=== PATIENT | female | born 1950 ===

== ENCOUNTER 2017-09-18 00:48 | Inpatient (IN) | payer MEDICARE, OTHER ==
[2017-09-17 13:46] LABS: INR 0.95
[2017-09-18] VITALS (8 sets, daily range): BP systolic 118–179; BP diastolic 68–115
[~2017-09-18] VITALS: Ht 160 cm; Wt 74.8 kg
[~2017-09-18 00:48] MED LIST: ASPI81TA94 PO; CARB-134 PO; DONE10TA89 PO; ESTR1PAT3 PO; HYDR-2966 PO; LEVO88TA PO; LISI20TA29 PO; PRAV20TA65 PO
[2017-09-18] MEDS ORDERED: SUGAMMADEX SOD 200 MG/2 ML SDV ONE (10:18)
[2017-09-18] MEDS ORDERED: ROCURONIUM BROM 10 MG/ML 10 ML ONE (10:18)
[2017-09-18] MEDS ORDERED: ONDANSETRON 4 MG/2 ML VIAL ONE (10:18)
[2017-09-18] MEDS ORDERED: PROPOFOL EMUL(*) 10MG/ML 20 ML 20 ML ONE (10:18)
[2017-09-18] MEDS ORDERED: fentaNYL CITR 250 MCG/5 ML AMP ONE (10:18)
[2017-09-18] MEDS ORDERED: DEXAMETHASONE SOD 4 MG/ML VIAL ONE (10:18)
[2017-09-18] MEDS ORDERED: LIDOCAINE MPF 1% 5 ML VIAL ONE (10:18)
[2017-09-18] MEDS ORDERED: KETAMINE HCL 200 MG/20 ML MDV ONE (10:22)
[2017-09-18] MEDS ORDERED: LIDOCAINE/SOD BICARB 8.4% SYR ID ONE (11:00)
[2017-09-18] MEDS ORDERED: CELECOXIB 200 MG CAP PO ONE (11:00)
[2017-09-18] MEDS ORDERED: cloNIDine EPIDUR INJ 100MCG/ML 40 MCG, ROPIVACAINE 0.5% 20 ML VIAL 25 ML, EPINEPHrine H... INJ ONE (11:00)
[2017-09-18] MEDS ORDERED: ceFAZolin(*) 2GM/D5W 50ML 50 ML IVPB ONE (11:00)
[2017-09-18] MEDS ORDERED: PREGABALIN 150 MG CAPSULE PO ONE (11:00)
[2017-09-18] MEDS ORDERED: NORMOSOL R SOLN(*) 1000 ML BAG 1,000 ML IV PRN (11:00)
[2017-09-18] MEDS ORDERED: TRANEXAMIC AC 1000 MG/10ML SDV 1,000 MG in DEXTROSE 5% 50 ML BAG 50 ML IV ONE (11:00)
[2017-09-18] MEDS ORDERED: FAMOTIDINE 20 MG TAB PO ONE (11:00)
[2017-09-18] MEDS ORDERED: ACETAMINOPHEN 500 MG TAB PO ONE (11:00)
[2017-09-18] MEDS ORDERED: BACITRACIN 50000 UNIT/VIAL 100,000 UNIT in NS 0.9% 3000 ML IRRIGATION BAG 3,000 ML IR ONE (11:00)
[2017-09-18] MEDS ORDERED: ROPIVACAINE 0.2% 20 ML VIAL ONE (11:57)
[2017-09-18] MEDS ORDERED: LIDO/EPI 2% MPF 1:200,000 20ML ONE (12:32)
[2017-09-18] MEDS: MIDAZOLAM 2 MG/2 ML VIAL IVP PRN ×2 (13:00→13:02)
[2017-09-18] MEDS ORDERED: NS 0.9% IRRIGATION 1000ML PLCT IR ONE (13:43)
[2017-09-18] MEDS ORDERED: ZOLPIDEM TARTRATE 5 MG TAB PO PRN (15:20)
[2017-09-18] MEDS ORDERED: diphenhydrAMINE 50 MG/ML VIAL IVP PRN (15:20)
[2017-09-18] MEDS ORDERED: MAGNESIUM HYDROXIDE* 30ML UDCP PO PRN (15:20)
[2017-09-18] MEDS ORDERED: MAGNESIUM CITRATE 300 ML BTL PO PRN (15:20)
[2017-09-18] MEDS ORDERED: diphenhydrAMINE 25 MG CAP PO PRN (15:20)
[2017-09-18] MEDS ORDERED: FLUSH 10 ML SYR IVP PRN (15:20)
[2017-09-18] MEDS ORDERED: BISACODYL 10 MG SUPP PR PRN (15:20)
[2017-09-18] MEDS ORDERED: HYDROmorphone HCL 2 MG/ML SDV IVP PRN (15:20)
[2017-09-18] MEDS ORDERED: LR 1000 ML BAG 1000 ML IV PRN (15:20)
[2017-09-18] MEDS ORDERED: ONDANSETRON 4 MG/2 ML VIAL IVP PRN (15:20)
[2017-09-18] MEDS ORDERED: PROMETHAZINE 25 MG/ML 1 ML AMP IVP PRN (15:20)
[2017-09-18] MEDS ORDERED: PRAV80TA29 PO (16:51)
[2017-09-18] MEDS ORDERED: COPP2CAP2 PO (17:00)
[2017-09-18] MEDS ORDERED: MELA5TAB6 PO (17:00)
[2017-09-18] MEDS ORDERED: MAGN100T PO (17:00)
[2017-09-18] MEDS ORDERED: ESTR0.5T16 PO (17:00)
--- NOTE | 2017-09-18 17:21 | Hospitalist Consultation ---
History of Present Illness Requesting Physician Dr. Bella Reason for Consult Medication Management Chief Complaint s/p right reverse total shoulder replacement History of Present Illness She was admitted s/p right reverse total shoulder replacement. It was reported the surgery went well and without complication. History Problems: (1) Brain cancer Status: Chronic (2) CVA (cerebral vascular accident) Status: Chronic (3) Seizure Status: Chronic (4) Hypothyroidism Status: Chronic (5) Hypertension Status: Chronic (6) Hyperlipidemia Status: Chronic Home Meds Reported Medications Melatonin (MELATONIN) 5 Mg Tablet, 5 MG PO HS 09/18/17 Magnesium Amino Acid Chelate (MAGNESIUM) 100 Mg Tablet, PO DAILY 09/18/17 Copper Gluconate (COPPER) 2 Mg Capsule, 2 MG PO DAILY, CAPSULE 09/18/17 Estradiol (ESTRADIOL) 0.5 Mg Tablet, 0.5 MG PO DAILY 09/18/17 Pravastatin Sodium (PRAVASTATIN SODIUM) 80 Mg Tablet, 80 MG PO HS 09/18/17 Lisinopril (LISINOPRIL) 20 Mg Tablet, 20 MG PO QDAY, TAB 09/13/17 Hydrochlorothiazide (HYDROCHLOROTHIAZIDE) 25 Mg Tablet, 1 TAB PO QDAY, TAB 09/13/17 Carbamazepine (CARBAMAZEPINE ER) 200 Mg Tab.er.12h, 200 MG PO DAILY 09/13/17 Levothyroxine Sodium (Levo-T) 88 Mcg Tablet, 88 MCG PO DAILY 09/13/17 Donepezil Hcl (ARICEPT) 10 Mg Tablet, 10 MG PO QDAY, TAB 09/13/17 Aspirin (ASPIRIN) 81 Mg Tab.chew, 81 MG PO QDAY, TAB.CHEW 09/13/17 Discontinued Reported Medications Estradiol (ESTRADIOL 0.05 MG) 1 Each Patch.tdwk, 1 EACH PO DAILY, PATCH.WK 09/13/17 Pravastatin Sodium (PRAVACHOL) 20 Mg Tablet, 80 MG PO QDAY, TAB 09/13/17 Allergies: Coded Allergies: No Known Drug Allergies (Unverified , 09/11/17) Patient History: FH: AR (myocardial infarction) FATHER, MOTHER, Hx Smoking: No Smoking Status: Never Smoker Caffeine Intake: Tea Caffeine/Cups Per Day: RARE Hx Alcohol Use: No Hx Substance Use Disorder: No Social Drug Use: Never History of IV Drug Use: No Review of Systems All Systems Reviewed/Normal: Yes, Except as Noted Exam Vital Signs Vital Signs Date Time Temp Pulse Resp B/P (MAP) Pulse Ox O2 Delivery O2 Flow Rate FiO2 09/18/17 17:00 93 140/98 (112) 97 Nasal Cannula 09/18/17 16:53 3.0 09/18/17 16:33 97.9 16 General Appearance: No Acute Distress, Afebrile Respiratory: No Respiratory Distress, Clear to Auscultation Psych: Other (patient sleeping during exam) Assessment and Plan Problems: (1) Status post reverse total replacement of right shoulder Status: Acute Assessment & Plan: Followed by Dr. Bella. (2) Hypertension Status: Chronic Assessment & Plan: She is on chronic treatment with Lisinopril and Hydrochlorothiazide. Lisinopril has been restarted with hold parameters. (3) Hypothyroidism Status: Chronic Assessment & Plan: She is on chronic treatment with Levothyroxine. (4) Hyperlipidemia Status: Chronic Assessment & Plan: She is on chronic treatment with Pravastatin. (5) Seizure Status: Chronic Assessment & Plan: She is on chronic treatment with carbamazepine. (6) CVA (cerebral vascular accident) Status: Chronic Assessment & Plan: She is on chronic treatment with Aspirin. Venous Thromboembolism Antithrombotics Is Pt On Any Antithrombotics?: No Exam Sepsis Risk: No Definite Risk MEGAN SARMIENTO STUMPER FELLER September 18, 2017 17:21
--- NOTE | 2017-09-18 18:49 | RADIOLOGY IMAGING REPORT ---
FACILITY: [facility] [place] PATIENT NAME: Lilly Phan : 1950 MR: [id number] V: [id number] EXAM DATE: ORDERING PHYSICIAN: MEGAN STEWART TECHNOLOGIST: Location: [facility] Patient: Lilly Phan : 1950 Visit/Account:[id number] Date of Sevice: 09/18/2017 SHOULDER 1 VIEW RIGHT History: Right shoulder pain. Status post replacement. Comparison study: None. Findings: There has been recent right shoulder arthroplasty. A subtle fracture involving the proxima l humeral metaphysis cannot be excluded. Position of the joint prosthetic components appears satisfac tory. There is no rib or clavicular fracture. IMPRESSION: 1. Status post right shoulder arthroplasty. 2. There may be a fracture involving the proximal right humeral metaphysis. Report Dictated By: Curly Cook MD at 09/18/2017 6:44 PM Report E-Signed By: Curly Cook MD at 09/18/2017 6:45 PM WSN:[id number]
[2017-09-18] MEDS ORDERED: PRAVASTATIN SOD 20 MG TAB PO SCH (21:00)
[2017-09-18] MEDS: CARBAMAZEPINE 200 MG TAB.ER.12H PO SCH (21:11)
[2017-09-18] MEDS: ceFAZolin(*) 1 GM VIAL 1 GM in NS(*) 0.9% 100 ML ADDVANT BAG 100 ML IVPB SCH (21:19)
--- NOTE | 2017-09-18 22:38 | OPERATIVE REPORT 1 ---
EVENT DATE: September 18, 2017 SURGEON: Dallin Bella MD ANESTHESIOLOGIST: Adalid Glasgow MD ANESTHESIA: General LMA anesthesia. GOVERNMENT AFFAIRS DIRECTOR: FABY Lux PREOPERATIVE DIAGNOSIS Displaced proximal humerus fracture. POSTOPERATIVE DIAGNOSIS Displaced proximal humerus fracture. PROCEDURE PERFORMED Right reverse total shoulder arthroplasty for fracture, which was a humeral head and metaphyseal fracture. FINDINGS The patient had a displaced humeral head fracture. It was amenable for reverse total shoulder arthroplasty with good tension. ESTIMATED BLOOD LOSS About 150 mL. DRAINS None. COMPLICATIONS None. TOURNIQUET TIME Not applicable. IMPLANTS USED DJO reverse total shoulder arthroplasty with a 32, -4 head, an 8 stem, and a concavity poly. INDICATIONS AND HISTORY This patient is a 67-year-old female who presented to Dr. John's clinic after sustaining a right proximal humerus fracture. Unfortunately, she had fallen on it again and continued to have pain and problems associated with it. It went on to a malunion, and so therefore, he referred her to me for further evaluation and possible treatment options. We talked to her about the implications of this, and given the fact that she has a significant health history and balance issues associated with this, we decided to go for a reverse total shoulder arthroplasty to try and see if we can get some function out of this again secondarily due to the fact of her neurological issues. She wanted to go ahead with that today, September 18, 2017. The risks and benefits were discussed with the patient, and informed consent was obtained at the last clinic visit. DESCRIPTION OF PROCEDURE As the patient was brought in the operating room, she and the procedure were both verified. She was placed supine on the operating table and induced and intubated by Anesthesia. The right upper extremity was then prepped and draped in the usual fashion after the patient was put in a beach chair position, and then the arm was prepped with Ioban. After injecting 2% lidocaine with epinephrine into the skin, I then went through the skin and subcutaneous tissue in a standard deltopectoral approach. This went through the skin and subcutaneous tissue until I got down to the deltopectoral interval. Once I was down through the deltopectoral interval, I was able to retract that to the lateral side and then release some of the adhesions and get down to the fracture site itself with the subscapularis and the biceps present. I then performed a biceps tenodesis and then was able to take down the subscapularis without any major difficulty. Once I was able to do this, I was then able to get to the humeral head itself, and then using an osteotome, I was able to cut off the articular portion of the humeral head for the majority of portion that was in that area. I also then trimmed down the inferior metaphyseal portion of the pole and then was able to remove some of the osteophytes and bony fragments that were up in the superior aspect. After taking down the subscapularis, I took down a little bit of the supraspinatus in order to make it amenable for a reverse. I then turned attention to the glenoid aspect where I was able to place retractors all the way around the glenoid. I was then able to cut the rest of the biceps and then retract around the entire area. Once I removed the labrum, I then centrally drilled down the center portion and then reamed the cartilage that was left in place. Once I got it down to a good smooth cortical bone, I utilized the DailyWorthO system for the reverse total shoulder arthroplasty in order to place the four holes around the corresponding glenosphere. They were 14 anterior, 18 posterior, and then 26 both superior and inferior. Once I was able to hold those in place, the glenosphere had excellent position, and then we put in the actual glenosphere, which was a 32, -4, and then screwed it in place. We then turned attention back to the humerus. Once on the humerus, I was then able to subsequently cut a little bit more of the head away in order to get down to the metaphyseal portion. I then was able to take a drill and then drill down the central portion of the canal. Once I was able to establish the canal, I then reamed up to an 8 mm reamer. We tried a 10, but it did not quite work, and then I was able to take the concentric reamers in the superior aspect of the humerus in order to create the bowl for the humerus itself. This was then followed by passing of five sutures through the lesser tuberosity and through the metaphyseal portion and then putting those to the side. A trial prosthesis was then utilized with a size 8 with a reduced concentricity poly, and then I was able to reduce this. It had excellent tissue balance associated with it and movement, and so those were the final components chosen. I then inserted the final components without any difficulty and then was able to repair the subscapularis with the sutures that I had passed previously which were the Ethibond sutures. This was then followed by irrigation again with copious amounts of saline, which we had done throughout the case with the pulse lavage. I then followed this up with closure of the deltopectoral interval, followed by closure of the subcutaneous tissue with a Stratafix in each layer and then a 4-0 Monocryl in the skin to close down the skin with the end buried. The wound was then dressed with Steri-Strip and gauze 4 x 4's, anesthetized with ropivacaine, and then she was put in a soft dressing and put in a sling, and then transferred to PACU in stable condition. GINGER
[2017-09-19 03:27] VITALS: BP 121/75
[2017-09-19] MEDS: ceFAZolin(*) 1 GM VIAL 1 GM in NS(*) 0.9% 100 ML ADDVANT BAG 100 ML IVPB SCH ×2 (05:42→12:20)
[2017-09-19] MEDS ORDERED: LEVOTHYROXINE SOD 0.088 MG TAB PO SCH (06:00)
[2017-09-19] MEDS ORDERED: OXYC-865 PO (07:38)
[2017-09-19 07:41] VITALS: BP 133/78
[2017-09-19] MEDS ORDERED: LISINOPRIL 20 MG TAB PO SCH (09:00)
[2017-09-19] MEDS: CARBAMAZEPINE 200 MG TAB.ER.12H PO SCH (09:14)
--- NOTE | 2017-09-19 09:26 | Hospitalist Progress Note ---
Subjective Progress Notes Subjective She has no complaints this morning. Patient Complains of: Cardiovascular: No: Chest Pain Respiratory: No: Shortness of Breath Physical Exam Vital Signs Date Time Temp Pulse Resp B/P (MAP) Pulse Ox O2 Delivery O2 Flow Rate FiO2 09/19/17 07:41 98.6 86 16 133/78 (96) 94 Nasal Cannula 0.5 Intake and Output 09/20/17 07:00 Intake Total 120 ml Balance 120 ml Intake Oral 120 ml # Voids 1 General Appearance: Alert, Awake, No Acute Distress, Afebrile Neuro: No Gross deficits Cardiovascular: Regular Rate and Rhythm Respiratory: No Respiratory Distress, Clear to Auscultation GI: Soft and Non-Tender Psych: Alert & Oriented X3, Appropriate Mood & Affect Result Diagram: 09/19/17 0543 Assessment and Plan Problems: (1) Status post reverse total replacement of right shoulder Status: Acute Assessment & Plan: Followed by Dr. Bella. (2) Hypertension Status: Chronic Assessment & Plan: She is on chronic treatment with Lisinopril and Hydrochlorothiazide. (3) Hypothyroidism Status: Chronic Assessment & Plan: She is on chronic treatment with Levothyroxine. (4) Hyperlipidemia Status: Chronic Assessment & Plan: She is on chronic treatment with Pravastatin. (5) Seizure Status: Chronic Assessment & Plan: She is on chronic treatment with carbamazepine. (6) CVA (cerebral vascular accident) Status: Chronic Assessment & Plan: She is on chronic treatment with Aspirin. Exam Sepsis Risk: No Definite Risk MEGAN SARMIENTOP September 19, 2017 09:26
[2017-09-19 10:28] VITALS: Ht 160 cm; Wt 74.8 kg
== END 2017-09-19 13:45 | disposition home or self-care (01) | DRG 483 ==
LOC: OR 00:48 → MED 16:30
PROVIDERS: ADMIT Orthopaedic Surgery; ATTEND Orthopaedic Surgery
PROC: 0RRJ00Z Replacement of Right Shoulder Joint with Reverse Ball and Socket Synthetic Substitute, Open Approach (ICD-10-PCS; principal; 2017-09-18 13:03)
DX: S42.291P Other displaced fracture of upper end of right humerus, subsequent encounter for fracture with malunion (principal); S49.0 Physeal fracture of upper end of humerus; E03.9 Hypothyroidism, unspecified; F03.90 Unspecified dementia, unspecified severity, without behavioral disturbance, psychotic disturbance, mood disturbance, and anxiety; I10 Essential (primary) hypertension; E78.5 Hyperlipidemia, unspecified; Y92.59 Other trade areas as the place of occurrence of the external cause; Y99.8 Other external cause status; W18.30XD Fall on same level, unspecified, subsequent encounter; Z86.73 Personal history of transient ischemic attack (TIA), and cerebral infarction without residual deficits; Z85.841 Personal history of malignant neoplasm of brain; Z92.21 Personal history of antineoplastic chemotherapy; Z92.3 Personal history of irradiation
CPT/HCPCS: 36415; 85014; 85018; 85610; 86850; 86900; 86901; 97166; A4565; C1776; J0690; J1100; J2001; J2250; J2405; J2704; J2795; J3010; J3490; J7120